=== PATIENT | male | born 1985 | race Hispanic/Latino ===

== ENCOUNTER 2024-06-08 21:56 | Emergency (ER) | payer OTHER | END 2024-06-08 22:40 | disposition home or self-care (01) | LOC: CSHERS 21:56 | DX: T15.91XA Foreign body on external eye, part unspecified, right eye, initial encounter (principal); I10 Essential (primary) hypertension; F17.210 Nicotine dependence, cigarettes, uncomplicated | CPT/HCPCS: 99282 ==